=== PATIENT | male | born 1945 | race Two or more races ===

== ENCOUNTER 2018-06-02 08:50 | Inpatient (IN) | payer BC, MEDICARE ==
[~2018-06-02] VITALS: Ht 170.2 cm; Wt 77.6 kg
[2018-06-02] MEDS ORDERED: ACETAMINOPHEN 325 MG TABLET PO PRN (11:15)
[2018-06-02] MEDS ORDERED: MAG HYDROX/AL HYDROX/SIMETH 30 ML ORAL.SUSP PO PRN (11:15)
[2018-06-02] MEDS ORDERED: MAGNESIUM HYDROXIDE 2,400 MG/30 ML ORAL.SUSP. PO PRN (11:15)
[2018-06-02] MEDS ORDERED: METHYL SALICYLATE/MENTHOL TOPICAL OINTMENT 29GM TUBE. TP PRN (11:15)
[2018-06-02 11:17] VITALS: BP 166/68
[2018-06-02] MEDS ORDERED: DONE10TA7 PO (12:15)
[2018-06-02] MEDS ORDERED: ASPI-612 PO (12:15)
[2018-06-02] MEDS ORDERED: AMLO10TA8 PO (12:15)
[2018-06-02] MEDS ORDERED: IPRA0.2S5 IH (12:15)
[2018-06-02] MEDS ORDERED: CHOL10003 PO (12:15)
[2018-06-02 12:25] LABS: BASO % 1 % (0-3); EOS % 1 % (0-3); HEMOGLOBIN 13.7 g/dL (13.0-17.5); LYMPH # 0.7 x10^3/uL (1.0-4.8); LYMPH % 18 % (24-48); MEAN CORPUSCULAR HEMOGLOBIN 28 pg (25-35); MEAN CORPUSCULAR HGB CONC 33 g/dL (31-37); MEAN CORPUSCULAR VOLUME 86 fL (79-100); MONO # 0.2 x10^3/uL (0.0-1.1); MONO % 5 % (0-9); NEUT # 3.1 x10^3uL (1.8-7.7); NEUT % 75 % (31-73); PLATELET COUNT 222 x10^3/uL (140-400); RED BLOOD COUNT 4.88 x10^6/uL (4.30-5.70); RED CELL DISTRIBUTION WIDTH 15.8 % (11.5-14.5); WHITE BLOOD COUNT 4.1 x10^3/uL (4.0-11.0)
[2018-06-02] MEDS ORDERED: DEXTROSE 50% 25 GM / 50ML DISP.SYRIN. IV PRN (12:30)
[2018-06-02 12:36] LABS: ALBUMIN 3.2 g/dL (3.4-5.0); ALBUMIN/GLOBULIN RATIO 0.7 (1.0-1.7); CALCIUM 9.1 mg/dL (8.5-10.1); CREATININE 1.3 mg/dL (0.7-1.3); MAGNESIUM 1.8 mg/dL (1.8-2.4); TOTAL BILIRUBIN 0.7 mg/dL (0.2-1.0); TOTAL PROTEIN 7.5 g/dL (6.4-8.2)
[2018-06-02] MEDS ORDERED: INSU100I27 SQ (14:42)
[2018-06-02] MEDS ORDERED: MEMA10TA PO (14:42)
[2018-06-02] MEDS ORDERED: ACET500T68 PO (14:42)
[2018-06-02] MEDS ORDERED: SENN8.6T99 PO (14:42)
[2018-06-02] MEDS ORDERED: DIVA500T2 PO (14:42)
[2018-06-02] MEDS ORDERED: QUET25TA5 PO ×2 (14:42)
[2018-06-02] MEDS ORDERED: ESCITALOPRAM OX10 MG PO (14:42)
[2018-06-02] MEDS ORDERED: ACETAMINOPHEN 500 MG TABLET PO PRN (15:00)
[2018-06-02 15:16] VITALS: BP 138/71
[2018-06-02] MEDS: DIVALPROEX SODIUM 250 MG TABLET.DR. PO SCH ×2 (15:42→21:04)
[2018-06-02] MEDS: INSULIN LISPRO 300 UNITS/3 ML INSULN.PEN. SQ SCH (17:07)
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
[2018-06-02] MEDS: MEMANTINE 5 MG TABLET. PO SCH (21:04)
[2018-06-02] MEDS: SENNOSIDES 8.6 MG TABLET PO SCH (21:04)
[2018-06-02] MEDS: QUEtiapine 25 MG TABLET. PO SCH (21:04)
[2018-06-02] MEDS: INSULIN GLARGINE 300 UNITS/3 ML INSULN.PEN. SQ SCH (21:05)
--- NOTE | 2018-06-02 22:15 | PDOC ---
Exam Note: Miguel Note: Please also refer to the separate dictated note~for this date of service dictated separately. Discussed the patient with Nursing staff reviewed the chart.~Reviewed interim history and current functioning. Reviewed vital signs,~ Labs/ Radiology~and current medications noted below. Continue current treatment with the changes noted in the dictated addendum note Assessment: Vital Signs: Vital Signs Date Time Temp Pulse Resp B/P (MAP) Pulse Ox O2 Delivery O2 Flow Rate FiO2 06/02/18 15:16 96.7 76 16 138/71 (93) 100 Labs: Laboratory Tests Test 06/02/18 12:15 06/02/18 16:52 06/02/18 19:22 White Blood Count 4.1 x10^3/uL (4.0-11.0) Red Blood Count 4.88 x10^6/uL (4.30-5.70) Hemoglobin 13.7 g/dL (13.0-17.5) Hematocrit 42.0 % (39.0-53.0) Mean Corpuscular Volume 86 fL (79-100) Mean Corpuscular Hemoglobin 28 pg (25-35) Mean Corpuscular Hemoglobin Concent 33 g/dL (31-37) Red Cell Distribution Width 15.8 % (11.5-14.5) H Platelet Count 222 x10^3/uL (140-400) Neutrophils (%) (Auto) 75 % (31-73) H Lymphocytes (%) (Auto) 18 % (24-48) L Monocytes (%) (Auto) 5 % (0-9) Eosinophils (%) (Auto) 1 % (0-3) Basophils (%) (Auto) 1 % (0-3) Neutrophils # (Auto) 3.1 x10^3uL (1.8-7.7) Lymphocytes # (Auto) 0.7 x10^3/uL (1.0-4.8) L Monocytes # (Auto) 0.2 x10^3/uL (0.0-1.1) Eosinophils # (Auto) 0.0 x10^3/uL (0.0-0.7) Basophils # (Auto) 0.0 x10^3/uL (0.0-0.2) Sodium Level 146 mmol/L (136-145) H Potassium Level 4.0 mmol/L (3.5-5.1) Chloride Level 108 mmol/L (98-107) H Carbon Dioxide Level 31 mmol/L (21-32) Anion Gap 7 (6-14) Blood Urea Nitrogen 23 mg/dL (8-26) Creatinine 1.3 mg/dL (0.7-1.3) Estimated GFR (Cockcroft-Gault) 54.0 BUN/Creatinine Ratio 18 (6-20) Glucose Level 222 mg/dL (70-99) H Calcium Level 9.1 mg/dL (8.5-10.1) Magnesium Level 1.8 mg/dL (1.8-2.4) Total Bilirubin 0.7 mg/dL (0.2-1.0) Aspartate Amino Transferase (AST) 54 U/L (15-37) H Alanine Aminotransferase (ALT) 177 U/L (16-63) H Alkaline Phosphatase 188 U/L (46-116) H Total Protein 7.5 g/dL (6.4-8.2) Albumin 3.2 g/dL (3.4-5.0) L Albumin/Globulin Ratio 0.7 (1.0-1.7) L Glucose (Fingerstick) 402 mg/dL (70-99) H 257 mg/dL (70-99) H Current Medications: Meds: Current Medications Acetaminophen (Tylenol) 650 mg PRN Q6HRS PRN PO PAIN / TEMP; Start 06/02/18 at 11:15; Status Cancel Multi-Ingredient Ointment (Analgesic [place]) 1 rai PRN QID PRN TP MUSCLE PAIN; Start 06/02/18 at 11:15 Al Hydroxide/Mg Hydroxide (Mylanta Plus Xs) 15 ml PRN AFTMEALHC PRN PO DYSPEPSIA; Start 06/02/18 at 11:15 Magnesium Hydroxide (Milk Of Magnesia) 2,400 mg PRN QHS PRN PO CONSTIPATION; Start 06/02/18 at 11:15 Olanzapine (ZyPREXA ZYDIS) 2.5 mg PRN Q2HR PRN PO PSYCHOSIS/agitation; Start at 12:15 Insulin Human Lispro (HumaLOG) 0-8 UNITS TIDWMEALS SQ Last administered on 06/02at 17:07; Start 06/02/18 at 17:00 Dextrose 12.5 gm PRN Q15MIN PRN IV SEE COMMENTS; Start 06/02/18 at 12:30 Insulin Glargine (Lantus) 8 units DAILY SQ ; Start 06/03/18 at 09:00 Vitamin D (Vitamin D3) 1,000 unit DAILY PO ; Start 06/03/18 at 09:00 Ipratropium [place] (Atrovent) 0.06 mg DAILY IH ; Start 06/03/18 at 09:00; Status UNV Acetaminophen (Tylenol) 500 mg PRN TID PRN PO PAIN; Start 06/02/18 at 15:00 Amlodipine Besylate (Norvasc) 10 mg DAILY PO ; Start 06/03/18 at 09:00 Aspirin (Aspirin Enteric Coated) 81 mg DAILY PO ; Start 06/03/18 at 09:00 Divalproex Sodium (Depakote) 250 mg TID PO Last administered on 06/02/18at 21:04 ; Start 06/02/18 at 15:00 Citalopram Hydrobromide (CeleXA) 20 mg DAILY PO ; Start 06/03/18 at 09:00 Insulin Glargine (Lantus) 5 units QHS SQ Last administered on 06/02/18at 21:05; Start 06/02/18 at 21:00 Memantine (Namenda) 5 mg BID PO Last administered on 06/02/18at 21:04; Start at 21:00 Quetiapine Fumarate (SEROquel) 12.5 mg BID92 PO ; Start 06/03/18 at 09:00 Quetiapine Fumarate (SEROquel) 25 mg QHS PO Last administered on 06/02/18at 21: 04; Start 06/02/18 at 21:00 Sennosides (Senna) 8.6 mg BID PO Last administered on 06/02/18at 21:04; Start at 21:00 Ipratropium [place] (Atrovent Nasal) 2 spray DAILY NS ; Start 06/03/18 at 09:00 Donepezil HCl (Aricept) 10 mg DAILY PO ; Start 06/03/18 at 09:00 Active Scripts Active Reported Levemir Flextouch (Insulin Detemir) 100 Unit/1 Ml Insuln.pen 5 Unit SQ QHS Acetaminophen 500 Mg Tablet 500 Mg PO TID PRN PRN Seroquel (Quetiapine Fumarate) 25 Mg Tablet 12.5 Mg PO BID92 Seroquel (Quetiapine Fumarate) 25 Mg Tablet 25 Mg PO QHS Namenda (Memantine Hcl) 10 Mg Tablet 5 Mg PO BID Senokot (Sennosides) 8.6 Mg Tablet 8.6 Mg PO BID Depakote (Divalproex Sodium) 500 Mg Tablet.dr 250 Mg PO TID Escitalopram Oxalate 10 Mg Tablet 10 Mg PO DAILY Donepezil Hcl 10 Mg Tablet 10 Mg PO DAILY Aspirin Ec (Aspirin) 81 Mg Tablet.dr 81 Mg PO DAILY Vitamin D3 (Cholecalciferol (Vitamin D3)) 1,000 Unit Tablet 1,000 Unit PO DAILY Amlodipine Besylate 10 Mg Tablet 10 Mg PO DAILY Ipratropium [place] 0.2 Mg/1 Ml Solution 0.06 % IH DAILY I have reviewed the current psychotropics carefully including drug interactions. Risk benefit ratio favors no change other than as noted in my dictated progress note. Diagnosis: Problems: (1) Anxiety disorder (2) Dementia, vascular, with delusions (3) Dementia, vascular, with depression (4) Dementia in Alzheimer's disease with delusions (5) Dementia in Alzheimer's disease with depression (6) Impulse control disorder KEZIA OWUSU MD Jun 02, 2018 22:15
[2018-06-03 06:04] VITALS: BP 156/73
[2018-06-03 06:18] LABS: BACTERIA,URINE 0 /HPF (0-FEW); BILIRUBIN,URINE NEG (NEG); CLARITY,URINE CLEAR; COLOR,URINE YELLOW; GLUCOSE,URINE NEG (NEG); NITRITE,URINE NEG (NEG); SQUAMOUS EPITHELIAL CELL,UR FEW /LPF; UROBILINOGEN,URINE 0.2 mg/dL (0.2 mg/dL); WBC,URINE OCC /HPF (0-4)
[2018-06-03 06:19] LABS: HYALINE CASTS, URINE FEW /HPF
[2018-06-03] MEDS: INSULIN LISPRO 300 UNITS/3 ML INSULN.PEN. SQ SCH ×3 (08:00→17:16)
[2018-06-03] MEDS: IPRATROPIUM BROMIDE 0.06% NASAL SPRAY 15ML BOTTLE NS SCH (08:35)
[2018-06-03] MEDS: DIVALPROEX SODIUM 250 MG TABLET.DR. PO SCH ×3 (08:43→19:23)
[2018-06-03] MEDS: MEMANTINE 5 MG TABLET. PO SCH ×2 (08:43→19:23)
[2018-06-03] MEDS: SENNOSIDES 8.6 MG TABLET PO SCH ×2 (08:43→19:23)
[2018-06-03] MEDS: amLODIPine BESYLATE 10 MG TABLET PO SCH (08:49)
[2018-06-03] MEDS: CITALOPRAM 20 MG TABLET. PO SCH (08:49)
[2018-06-03] MEDS: QUEtiapine 25 MG TABLET. PO SCH ×3 (08:50→19:23)
[2018-06-03] MEDS: ASPIRIN ENTERIC COATED 81 MG TABLET.DR. PO SCH (08:51)
[2018-06-03] MEDS: DONEPEZIL HCL 10 MG TABLET PO SCH (08:51)
[2018-06-03] MEDS: CHOLECALCIFEROL (VITAMIN D3) 1,000 UNIT TABLET PO SCH (08:51)
[2018-06-03] MEDS ORDERED: IPRATROPIUM BROMIDE 0.5 MG/2.5 ML NEBU. IH SCH (09:00)
[2018-06-03] MEDS ORDERED: INSULIN GLARGINE 300 UNITS/3 ML INSULN.PEN. SQ SCH (09:00)
[2018-06-03 16:00] VITALS: BP 109/70
[2018-06-03 18:44] LABS: THYROID STIM HORMONE (TSH) 5.582 uIU/mL (0.358-3.740)
[2018-06-03] MEDS: INSULIN GLARGINE 300 UNITS/3 ML INSULN.PEN. SQ SCH (20:45)
[2018-06-03 21:17] LABS: VAL ACID 30 mcg/mL (50-100)
--- NOTE | 2018-06-03 22:09 | PDOC ---
Exam Note: Miguel Note: Please also refer to the separate dictated note~for this date of service dictated separately.~Patient seen individually. Discussed the patient with Nursing staff reviewed the chart.~Reviewed interim history and current functioning. Reviewed vital signs,~Labs/ Radiology~and current medications noted below. Continue current treatment with the changes noted in the dictated addendum note Assessment: Vital Signs: Vital Signs Date Time Temp Pulse Resp B/P (MAP) Pulse Ox O2 Delivery O2 Flow Rate FiO2 06/03/18 16:00 97.9 60 18 109/70 (83) 100 I&O Intake and Output 06/03/18 07:00 Intake Total 604 ml Balance 604 ml Intake Oral 604 ml # Bowel Movements 1 Labs: Laboratory Tests Test 06/03/18 05:40 06/03/18 07:11 06/03/18 12:01 06/03/18 16:19 Urine Collection Type Unknown Urine Color Yellow Urine Clarity Clear Urine pH 6.0 Urine Specific [place] 1.020 Urine Protein 30 mg/dl (NEG-TRACE) Urine Glucose (UA) Neg mg/dL (NEG) Urine Ketones (Stick) Trace mg/dL (NEG) Urine Blood Small (NEG) Urine Nitrite Neg (NEG) Urine Bilirubin Neg (NEG) Urine Urobilinogen Dipstick 0.2 mg/dL (0.2 mg/dL) Urine Leukocyte Esterase Neg (NEG) Urine RBC 11-20 /HPF (0-2) Urine WBC Occ /HPF (0-4) Urine Squamous Epithelial Cells Few /LPF Urine Bacteria 0 /HPF (0-FEW) Urine Hyaline Casts Few /HPF Glucose (Fingerstick) 71 mg/dL (70-99) 247 mg/dL (70-99) H 230 mg/dL (70-99) H Test 06/03/18 19:22 06/03/18 20:35 Glucose (Fingerstick) 188 mg/dL (70-99) H Valproic Acid Level 30 mcg/mL (50-100) L Valproic Acid Last Dose Date Unk Valproic Acid Last Dose Time Unk Current Medications: Meds: Current Medications Acetaminophen (Tylenol) 650 mg PRN Q6HRS PRN PO PAIN / TEMP; Start 06/02/18 at 11:15; Status Cancel Multi-Ingredient Ointment (Analgesic [place]) 1 rai PRN QID PRN TP MUSCLE PAIN; Start 06/02/18 at 11:15 Al Hydroxide/Mg Hydroxide (Mylanta Plus Xs) 15 ml PRN AFTMEALHC PRN PO DYSPEPSIA; Start 06/02/18 at 11:15 Magnesium Hydroxide (Milk Of Magnesia) 2,400 mg PRN QHS PRN PO CONSTIPATION; Start 06/02/18 at 11:15 Olanzapine (ZyPREXA ZYDIS) 2.5 mg PRN Q2HR PRN PO PSYCHOSIS/agitation Last administered on 06/03/18at 13:00; Start 06/02/18 at 12:15 Insulin Human Lispro (HumaLOG) 0-8 UNITS TIDWMEALS SQ Last administered on 06/03 17:16; Start 06/02/18 at 17:00 Dextrose 12.5 gm PRN Q15MIN PRN IV SEE COMMENTS; Start 06/02/18 at 12:30 Insulin Glargine (Lantus) 8 units DAILY SQ Last administered on 06/03/18 08:59 ; Start 06/03/18 at 09:00 Vitamin D (Vitamin D3) 1,000 unit DAILY PO Last administered on 06/03/18at 08:51 ; Start 06/03/18 at 09:00 Ipratropium [place] (Atrovent) 0.06 mg DAILY IH ; Start 06/03/18 at 09:00; Status UNV Acetaminophen (Tylenol) 500 mg PRN TID PRN PO PAIN; Start 06/02/18 at 15:00 Amlodipine Besylate (Norvasc) 10 mg DAILY PO Last administered on 06/03/18 08: 49; Start 06/03/18 at 09:00 Aspirin (Aspirin Enteric Coated) 81 mg DAILY PO Last administered on 06/03/18at 08:51; Start 06/03/18 at 09:00 Divalproex Sodium (Depakote) 250 mg TID PO Last administered on 06/03/18 19:23 ; Start 06/02/18 at 15:00 Citalopram Hydrobromide (CeleXA) 20 mg DAILY PO Last administered on 06/03/18 08:49; Start 06/03/18 at 09:00 Insulin Glargine (Lantus) 5 units QHS SQ Last administered on 06/03/18at 20:45; Start 06/02/18 at 21:00 Memantine (Namenda) 5 mg BID PO Last administered on 06/03/18at 19:23; Start at 21:00 Quetiapine Fumarate (SEROquel) 12.5 mg BID92 PO Last administered on 06/03/18at 13:00; Start 06/03/18 at 09:00 Quetiapine Fumarate (SEROquel) 25 mg QHS PO Last administered on 06/03/18at 19: 23; Start 06/02/18 at 21:00 Sennosides (Senna) 8.6 mg BID PO Last administered on 06/03/18at 19:23; Start at 21:00 Ipratropium [place] (Atrovent Nasal) 2 spray DAILY NS Last administered on 06/03at 08:35; Start 06/03/18 at 09:00 Donepezil HCl (Aricept) 10 mg DAILY PO Last administered on 06/03/18at 08:51; Start 06/03/18 at 09:00 Active Scripts Active Reported Levemir Flextouch (Insulin Detemir) 100 Unit/1 Ml Insuln.pen 5 Unit SQ QHS Acetaminophen 500 Mg Tablet 500 Mg PO TID PRN PRN Seroquel (Quetiapine Fumarate) 25 Mg Tablet 12.5 Mg PO BID92 Seroquel (Quetiapine Fumarate) 25 Mg Tablet 25 Mg PO QHS Namenda (Memantine Hcl) 10 Mg Tablet 5 Mg PO BID Senokot (Sennosides) 8.6 Mg Tablet 8.6 Mg PO BID Depakote (Divalproex Sodium) 500 Mg Tablet.dr 250 Mg PO TID Escitalopram Oxalate 10 Mg Tablet 10 Mg PO DAILY Donepezil Hcl 10 Mg Tablet 10 Mg PO DAILY Aspirin Ec (Aspirin) 81 Mg Tablet.dr 81 Mg PO DAILY Vitamin D3 (Cholecalciferol (Vitamin D3)) 1,000 Unit Tablet 1,000 Unit PO DAILY Amlodipine Besylate 10 Mg Tablet 10 Mg PO DAILY Ipratropium [place] 0.2 Mg/1 Ml Solution 0.06 % IH DAILY I have reviewed the current psychotropics carefully including drug interactions. Risk benefit ratio favors no change other than as noted in my dictated progress note. Diagnosis: Problems: (1) Anxiety disorder (2) Dementia, vascular, with delusions (3) Dementia, vascular, with depression (4) Dementia in Alzheimer's disease with delusions (5) Dementia in Alzheimer's disease with depression (6) Impulse control disorder KEZIA OWUSU MD Jun 03, 2018 22:09
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
[2018-06-04] MEDS ORDERED: DEXTROSE ORAL GEL 15 GM TUBE. ONE (06:05)
[2018-06-04 06:15] VITALS: BP 118/85
[2018-06-04] MEDS ORDERED: GLUCAGON,HUMAN RECOMBINANT 1 MG KIT. IM ONE (06:30)
[2018-06-04] MEDS ORDERED: DEXTROSE 50% 25 GM / 50ML DISP.SYRIN. IV PRN (07:00)
[2018-06-04] MEDS: QUEtiapine 25 MG TABLET. PO SCH ×4 (07:45→19:30)
[2018-06-04] MEDS: SENNOSIDES 8.6 MG TABLET PO SCH ×2 (07:45→19:27)
[2018-06-04] MEDS: CHOLECALCIFEROL (VITAMIN D3) 1,000 UNIT TABLET PO SCH (07:45)
[2018-06-04] MEDS: amLODIPine BESYLATE 10 MG TABLET PO SCH (07:46)
[2018-06-04] MEDS: IPRATROPIUM BROMIDE 0.06% NASAL SPRAY 15ML BOTTLE NS SCH (07:46)
[2018-06-04] MEDS: DIVALPROEX SODIUM 250 MG TABLET.DR. PO SCH ×2 (07:46→13:17)
[2018-06-04] MEDS: MEMANTINE 5 MG TABLET. PO SCH ×2 (07:46→19:27)
[2018-06-04] MEDS: CITALOPRAM 20 MG TABLET. PO SCH (07:46)
[2018-06-04] MEDS: DONEPEZIL HCL 10 MG TABLET PO SCH (07:46)
[2018-06-04] MEDS: ASPIRIN ENTERIC COATED 81 MG TABLET.DR. PO SCH (07:46)
[2018-06-04] MEDS: INSULIN LISPRO 300 UNITS/3 ML INSULN.PEN. SQ SCH ×3 (07:47→17:53)
[2018-06-04] MEDS ORDERED: DIVALPROEX 125 MG CAP.SPRINK PO SCH (14:00)
[2018-06-04 15:54] VITALS: BP 133/83
[2018-06-04] MEDS: DIVALPROEX 125 MG CAP.SPRINK PO SCH (19:34)
--- NOTE | 2018-06-04 20:19 | PN ---
DATE: 06/03/2018 PSYCHIATRIC PROGRESS NOTE This late entry 06/03/2018 covers elements not covered in my initial note. SUBJECTIVE: I met with the patient in the evening. The patient slept 5-3/4 hours previous night. He was quite anxious, restless and after lunch wanting to get out, but wanted his $16 that was owed to him. He received Zyprexa p.r.n. We will check valproic acid level. He has been anxious, restless, extremely confused. REVIEW OF SYSTEMS: Ambulation impaired, in wheelchair. No CV, , pulmonary, eye, ENT system symptoms on review. Reliability poor. MENTAL STATUS EXAM: Oriented to himself. Insight, judgment, recent and remote memory, attention, concentration, fund of knowledge poor, consistent with his diagnosis mentioned in my initial note. PLAN: No change from initial note and adjust Depakote post level received, may add BuSpar for anxiety, but only after we get the valproic acid level therapeutic. MAN Marily OWUSU MD DR: JM/re JOB#: [id number] / [id number]
--- NOTE | 2018-06-04 22:35 | PDOC ---
Exam Note: Miguel Note: Please also refer to the separate dictated note~for this date of service dictated separately.~Patient seen individually. Discussed the patient with Nursing staff reviewed the chart.~Reviewed interim history and current functioning. Reviewed vital signs,~Labs/ Radiology~and current medications noted below. Continue current treatment with the changes noted in the dictated addendum note Assessment: Vital Signs: Vital Signs Date Time Temp Pulse Resp B/P (MAP) Pulse Ox O2 Delivery O2 Flow Rate FiO2 06/04/18 15:54 97.2 60 18 133/83 (100) 92 06/04/18 06:15 Room Air I&O Intake and Output 06/04/18 06:59 Intake Total 840 ml Balance 840 ml Intake Oral 840 ml # Voids 1 # Bowel Movements 1 Labs: Laboratory Tests Test 06/04/18 06:04 06/04/18 06:18 06/04/18 06:20 06/04/18 06:35 Glucose (Fingerstick) 24 mg/dL (70-99) *L 30 mg/dL (70-99) *L 188 mg/dL (70-99) H Glucose Level 32 mg/dL (70-99) *L Test 06/04/18 07:26 06/04/18 11:53 06/04/18 17:12 06/04/18 19:09 Glucose (Fingerstick) 190 mg/dL (70-99) H 329 mg/dL (70-99) H 254 mg/dL (70-99) H 207 mg/dL (70-99) H Current Medications: Meds: Current Medications Acetaminophen (Tylenol) 650 mg PRN Q6HRS PRN PO PAIN / TEMP; Start 06/02/18 at 11:15; Status Cancel Multi-Ingredient Ointment (Analgesic [place]) 1 rai PRN QID PRN TP MUSCLE PAIN; Start 06/02/18 at 11:15 Al Hydroxide/Mg Hydroxide (Mylanta Plus Xs) 15 ml PRN AFTMEALHC PRN PO DYSPEPSIA; Start 06/02/18 at 11:15 Magnesium Hydroxide (Milk Of Magnesia) 2,400 mg PRN QHS PRN PO CONSTIPATION; Start 06/02/18 at 11:15 Olanzapine (ZyPREXA ZYDIS) 2.5 mg PRN Q2HR PRN PO PSYCHOSIS/agitation Last administered on 06/03/18 13:00; Start 06/02/18 at 12:15 Insulin Human Lispro (HumaLOG) 0-8 UNITS TIDWMEALS SQ Last administered on 06/03 17:16; Start 06/02/18 at 17:00; Stop 06/04/18 at 06:57; Status DC Dextrose 12.5 gm PRN Q15MIN PRN IV SEE COMMENTS Last administered on 06/04/18 06:56; Start 06/02/18 at 12:30; Stop 06/04/18 at 11:30; Status DC Insulin Glargine (Lantus) 8 units DAILY SQ Last administered on 06/03/18 08:59 ; Start 06/03/18 at 09:00; Stop 06/04/18 at 06:50; Status DC Vitamin D (Vitamin D3) 1,000 unit DAILY PO Last administered on 06/04/18at 07:45 ; Start 06/03/18 at 09:00 Ipratropium [place] (Atrovent) 0.06 mg DAILY IH ; Start 06/03/18 at 09:00; Status UNV Acetaminophen (Tylenol) 500 mg PRN TID PRN PO PAIN; Start 06/02/18 at 15:00 Amlodipine Besylate (Norvasc) 10 mg DAILY PO Last administered on 06/04/18 07: 46; Start 06/03/18 at 09:00 Aspirin (Aspirin Enteric Coated) 81 mg DAILY PO Last administered on 06/04/18at 07:46; Start 06/03/18 at 09:00 Divalproex Sodium (Depakote) 250 mg TID PO Last administered on 06/04/18 13:17 ; Start 06/02/18 at 15:00; Stop 06/04/18 at 12:54; Status DC Citalopram Hydrobromide (CeleXA) 20 mg DAILY PO Last administered on 06/04/18 07:46; Start 06/03/18 at 09:00 Insulin Glargine (Lantus) 5 units QHS SQ Last administered on 06/03/18 20:45; Start 06/02/18 at 21:00; Stop 06/04/18 at 06:50; Status DC Memantine (Namenda) 5 mg BID PO Last administered on 06/04/18 19:27; Start at 21:00 Quetiapine Fumarate (SEROquel) 12.5 mg BID92 PO Last administered on 06/04/18 13:18; Start 06/03/18 at 09:00; Stop 06/04/18 at 16:52; Status DC Quetiapine Fumarate (SEROquel) 25 mg QHS PO Last administered on 06/04/18 19: 27; Start 06/02/18 at 21:00 Sennosides (Senna) 8.6 mg BID PO Last administered on 06/04/18 19:27; Start at 21:00 Ipratropium [place] (Atrovent Nasal) 2 spray DAILY NS Last administered on 06/04 07:46; Start 06/03/18 at 09:00 Donepezil HCl (Aricept) 10 mg DAILY PO Last administered on 06/04/18 07:46; Start 06/03/18 at 09:00 Glucose (Insta-Glucose) 15 gm STK-MED ONCE .ROUTE Last administered on at 06:05; Start 06/04/18 at 06:05; Stop 06/04/18 at 06:06; Status DC Glucagon (Glucagen Kit) 1 mg 1X ONCE IM ; Start 06/04/18 at 06:30; Stop at 06:32; Status DC Insulin Human Lispro (HumaLOG) 0-5 UNITS TIDWMEALS SQ Last administered on 06/04at 17:53; Start 06/04/18 at 08:00 Dextrose 12.5 gm PRN Q15MIN PRN IV SEE COMMENTS; Start 06/04/18 at 07:00 Divalproex Sodium (Depakote Sprinkles) 250 mg TID PO ; Start 06/04/18 at 14:00; Stop 06/04/18 at 16:52; Status DC Divalproex Sodium (Depakote Sprinkles) 375 mg TID PO Last administered on at 19:34; Start 06/04/18 at 21:00 Quetiapine Fumarate (SEROquel) 12.5 mg TIDWMEALS PO ; Start 06/04/18 at 21:00 Active Scripts Active Reported Levemir Flextouch (Insulin Detemir) 100 Unit/1 Ml Insuln.pen 5 Unit SQ QHS Acetaminophen 500 Mg Tablet 500 Mg PO TID PRN PRN Seroquel (Quetiapine Fumarate) 25 Mg Tablet 12.5 Mg PO BID92 Seroquel (Quetiapine Fumarate) 25 Mg Tablet 25 Mg PO QHS Namenda (Memantine Hcl) 10 Mg Tablet 5 Mg PO BID Senokot (Sennosides) 8.6 Mg Tablet 8.6 Mg PO BID Depakote (Divalproex Sodium) 500 Mg Tablet.dr 250 Mg PO TID Escitalopram Oxalate 10 Mg Tablet 10 Mg PO DAILY Donepezil Hcl 10 Mg Tablet 10 Mg PO DAILY Aspirin Ec (Aspirin) 81 Mg Tablet.dr 81 Mg PO DAILY Vitamin D3 (Cholecalciferol (Vitamin D3)) 1,000 Unit Tablet 1,000 Unit PO DAILY Amlodipine Besylate 10 Mg Tablet 10 Mg PO DAILY Ipratropium [place] 0.2 Mg/1 Ml Solution 0.06 % IH DAILY I have reviewed the current psychotropics carefully including drug interactions. Risk benefit ratio favors no change other than as noted in my dictated progress note. Diagnosis: Problems: (1) Anxiety disorder (2) Dementia, vascular, with delusions (3) Dementia, vascular, with depression (4) Dementia in Alzheimer's disease with delusions (5) Dementia in Alzheimer's disease with depression (6) Impulse control disorder KEZIA OWUSU MD Jun 04, 2018 22:35
[2018-06-05 06:54] VITALS: BP 135/65
[2018-06-05] MEDS: CITALOPRAM 20 MG TABLET. PO SCH (07:46)
[2018-06-05] MEDS: INSULIN LISPRO 300 UNITS/3 ML INSULN.PEN. SQ SCH ×3 (07:46→17:00)
[2018-06-05] MEDS: QUEtiapine 25 MG TABLET. PO SCH ×4 (07:46→20:54)
[2018-06-05] MEDS: SENNOSIDES 8.6 MG TABLET PO SCH ×2 (07:46→20:54)
[2018-06-05] MEDS: CHOLECALCIFEROL (VITAMIN D3) 1,000 UNIT TABLET PO SCH (07:46)
[2018-06-05] MEDS: DIVALPROEX 125 MG CAP.SPRINK PO SCH ×3 (07:47→20:54)
[2018-06-05] MEDS: IPRATROPIUM BROMIDE 0.06% NASAL SPRAY 15ML BOTTLE NS SCH (07:47)
[2018-06-05] MEDS: MEMANTINE 5 MG TABLET. PO SCH ×2 (07:47→20:54)
[2018-06-05] MEDS: amLODIPine BESYLATE 10 MG TABLET PO SCH (07:47)
[2018-06-05] MEDS: DONEPEZIL HCL 10 MG TABLET PO SCH (07:47)
[2018-06-05] MEDS: ASPIRIN ENTERIC COATED 81 MG TABLET.DR. PO SCH (07:47)
--- NOTE | 2018-06-05 21:30 | PDOC ---
Exam Note: Miguel Note: Please also refer to the separate dictated note~for this date of service dictated separately.~Patient seen individually. Discussed the patient with Nursing staff reviewed the chart.~Reviewed interim history and current functioning. Reviewed vital signs,~Labs/ Radiology~and current medications noted below. Continue current treatment with the changes noted in the dictated addendum note Assessment: Vital Signs: Vital Signs Date Time Temp Pulse Resp B/P (MAP) Pulse Ox O2 Delivery O2 Flow Rate FiO2 06/05/18 07:47 54 135/65 06/05/18 06:54 97.4 16 100 06/04/18 06:15 Room Air I&O Intake and Output 06/05/18 06:59 Intake Total 900 ml Balance 900 ml Intake Oral 900 ml # Voids 1 Labs: Laboratory Tests Test 06/05/18 07:12 06/05/18 12:24 06/05/18 16:36 06/05/18 19:18 Glucose (Fingerstick) 151 mg/dL (70-99) H 234 mg/dL (70-99) H 260 mg/dL (70-99) H 282 mg/dL (70-99) H Current Medications: Meds: Current Medications Acetaminophen (Tylenol) 650 mg PRN Q6HRS PRN PO PAIN / TEMP; Start 06/02/18 at 11:15; Status Cancel Multi-Ingredient Ointment (Analgesic [place]) 1 rai PRN QID PRN TP MUSCLE PAIN; Start 06/02/18 at 11:15 Al Hydroxide/Mg Hydroxide (Mylanta Plus Xs) 15 ml PRN AFTMEALHC PRN PO DYSPEPSIA; Start 06/02/18 at 11:15 Magnesium Hydroxide (Milk Of Magnesia) 2,400 mg PRN QHS PRN PO CONSTIPATION; Start 06/02/18 at 11:15 Olanzapine (ZyPREXA ZYDIS) 2.5 mg PRN Q2HR PRN PO PSYCHOSIS/agitation Last administered on 06/03/18at 13:00; Start 06/02/18 at 12:15 Insulin Human Lispro (HumaLOG) 0-8 UNITS TIDWMEALS SQ Last administered on 06/03at 17:16; Start 06/02/18 at 17:00; Stop 06/04/18 at 06:57; Status DC Dextrose 12.5 gm PRN Q15MIN PRN IV SEE COMMENTS Last administered on 06/04/18 06:56; Start 06/02/18 at 12:30; Stop 06/04/18 at 11:30; Status DC Insulin Glargine (Lantus) 8 units DAILY SQ Last administered on 06/03/18at 08:59 ; Start 06/03/18 at 09:00; Stop 06/04/18 at 06:50; Status DC Vitamin D (Vitamin D3) 1,000 unit DAILY PO Last administered on 06/05/18 07:46 ; Start 06/03/18 at 09:00 Ipratropium [place] (Atrovent) 0.06 mg DAILY IH ; Start 06/03/18 at 09:00; Status UNV Acetaminophen (Tylenol) 500 mg PRN TID PRN PO PAIN; Start 06/02/18 at 15:00 Amlodipine Besylate (Norvasc) 10 mg DAILY PO Last administered on 06/05/18 07: 47; Start 06/03/18 at 09:00 Aspirin (Aspirin Enteric Coated) 81 mg DAILY PO Last administered on 06/05/18at 07:47; Start 06/03/18 at 09:00 Divalproex Sodium (Depakote) 250 mg TID PO Last administered on 06/04/18 13:17 ; Start 06/02/18 at 15:00; Stop 06/04/18 at 12:54; Status DC Citalopram Hydrobromide (CeleXA) 20 mg DAILY PO Last administered on 06/05/18at 07:46; Start 06/03/18 at 09:00 Insulin Glargine (Lantus) 5 units QHS SQ Last administered on 06/03/18at 20:45; Start 06/02/18 at 21:00; Stop 06/04/18 at 06:50; Status DC Memantine (Namenda) 5 mg BID PO Last administered on 06/05/18 20:54; Start at 21:00 Quetiapine Fumarate (SEROquel) 12.5 mg BID92 PO Last administered on 06/04/18 13:18; Start 06/03/18 at 09:00; Stop 06/04/18 at 16:52; Status DC Quetiapine Fumarate (SEROquel) 25 mg QHS PO Last administered on 06/05/18 20: 54; Start 06/02/18 at 21:00 Sennosides (Senna) 8.6 mg BID PO Last administered on 06/05/18 20:54; Start at 21:00 Ipratropium [place] (Atrovent Nasal) 2 spray DAILY NS Last administered on 06/05 07:47; Start 06/03/18 at 09:00 Donepezil HCl (Aricept) 10 mg DAILY PO Last administered on 06/05/18 07:47; Start 06/03/18 at 09:00 Glucose (Insta-Glucose) 15 gm STK-MED ONCE .ROUTE Last administered on 06:05; Start 06/04/18 at 06:05; Stop 06/04/18 at 06:06; Status DC Glucagon (Glucagen Kit) 1 mg 1X ONCE IM ; Start 06/04/18 at 06:30; Stop at 06:32; Status DC Insulin Human Lispro (HumaLOG) 0-5 UNITS TIDWMEALS SQ Last administered on 06/05at 17:00; Start 06/04/18 at 08:00 Dextrose 12.5 gm PRN Q15MIN PRN IV SEE COMMENTS; Start 06/04/18 at 07:00 Divalproex Sodium (Depakote Sprinkles) 250 mg TID PO ; Start 06/04/18 at 14:00; Stop 06/04/18 at 16:52; Status DC Divalproex Sodium (Depakote Sprinkles) 375 mg TID PO Last administered on at 20:54; Start 06/04/18 at 21:00 Quetiapine Fumarate (SEROquel) 12.5 mg TIDWMEALS PO Last administered on 17:00; Start 06/04/18 at 21:00 Active Scripts Active Reported Levemir Flextouch (Insulin Detemir) 100 Unit/1 Ml Insuln.pen 5 Unit SQ QHS Acetaminophen 500 Mg Tablet 500 Mg PO TID PRN PRN Seroquel (Quetiapine Fumarate) 25 Mg Tablet 12.5 Mg PO BID92 Seroquel (Quetiapine Fumarate) 25 Mg Tablet 25 Mg PO QHS Namenda (Memantine Hcl) 10 Mg Tablet 5 Mg PO BID Senokot (Sennosides) 8.6 Mg Tablet 8.6 Mg PO BID Depakote (Divalproex Sodium) 500 Mg Tablet.dr 250 Mg PO TID Escitalopram Oxalate 10 Mg Tablet 10 Mg PO DAILY Donepezil Hcl 10 Mg Tablet 10 Mg PO DAILY Aspirin Ec (Aspirin) 81 Mg Tablet.dr 81 Mg PO DAILY Vitamin D3 (Cholecalciferol (Vitamin D3)) 1,000 Unit Tablet 1,000 Unit PO DAILY Amlodipine Besylate 10 Mg Tablet 10 Mg PO DAILY Ipratropium [place] 0.2 Mg/1 Ml Solution 0.06 % IH DAILY I have reviewed the current psychotropics carefully including drug interactions. Risk benefit ratio favors no change other than as noted in my dictated progress note. Diagnosis: Problems: (1) Anxiety disorder (2) Dementia, vascular, with delusions (3) Dementia, vascular, with depression (4) Dementia in Alzheimer's disease with delusions (5) Dementia in Alzheimer's disease with depression (6) Impulse control disorder KEZIA OWUSU MD Jun 05, 2018 21:30
[2018-06-06 06:05] VITALS: BP 96/55
[2018-06-06] MEDS: CITALOPRAM 20 MG TABLET. PO SCH (07:34)
[2018-06-06] MEDS: ASPIRIN ENTERIC COATED 81 MG TABLET.DR. PO SCH (07:34)
[2018-06-06] MEDS: SENNOSIDES 8.6 MG TABLET PO SCH (07:34)
[2018-06-06] MEDS: QUEtiapine 25 MG TABLET. PO SCH ×2 (07:34→12:56)
[2018-06-06] MEDS: DONEPEZIL HCL 10 MG TABLET PO SCH (07:34)
[2018-06-06] MEDS: DIVALPROEX 125 MG CAP.SPRINK PO SCH ×2 (07:35→12:56)
[2018-06-06] MEDS: CHOLECALCIFEROL (VITAMIN D3) 1,000 UNIT TABLET PO SCH (07:35)
[2018-06-06] MEDS: MEMANTINE 5 MG TABLET. PO SCH (07:35)
[2018-06-06] MEDS: amLODIPine BESYLATE 10 MG TABLET PO SCH (07:36)
[2018-06-06] MEDS: INSULIN LISPRO 300 UNITS/3 ML INSULN.PEN. SQ SCH ×2 (07:38→12:00)
[2018-06-06] MEDS: IPRATROPIUM BROMIDE 0.06% NASAL SPRAY 15ML BOTTLE NS SCH (07:39)
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
[2018-06-06 16:29] VITALS: BP 112/62
[2018-06-06] MEDS ORDERED: CITA20TA9 PO (16:48)
[2018-06-06] MEDS ORDERED: MAG355OR12 PO (16:50)
[2018-06-06] MEDS ORDERED: INSU200I SQ (16:50)
[2018-06-06] MEDS ORDERED: MAGN2400 PO (16:51)
[2018-06-06] MEDS ORDERED: MENT113G6 TP (16:52)
[2018-06-06] MEDS ORDERED: DEXT50VI2 IV (16:52)
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
--- NOTE | 2018-06-07 18:53 | PN ---
DATE: 06/05/2018 PSYCHIATRIC PROGRESS NOTE This late entry 06/05/2018 covers elements, not covered in my initial note. SUBJECTIVE: I met with the patient in the evening. The patient slept 6-3/4 hours previous night. He has been quite confused, cranky, irritable, labile. Seroquel has been adjusted. REVIEW OF SYSTEMS: Ambulation impaired with wheelchair. No CV, , pulmonary, eye, ENT system symptoms on review. Reliability poor. MENTAL STATUS EXAM: Oriented to himself. Insight, judgment, recent and remote memory, attention, concentration, fund of knowledge poor, consistent with his diagnosis mentioned in my initial note. PLAN: No change from initial note. MAN Marily OWUSU MD DR: JM/re JOB#: [id number] / [id number]
--- NOTE | 2018-06-07 22:01 | PDOC ---
Exam Note: Miguel Note: Late entry for Date of Discharge 06.06.2018. Please also refer to the separate dictated note~for this date of service dictated separately.~Patient seen individually. Discussed the patient with Nursing staff reviewed the chart.~ Reviewed interim history and current functioning. Reviewed vital signs,~Labs/ Radiology~and current medications noted below. Continue current treatment with the changes noted in the dictated addendum note Assessment: Vital Signs: Vital Signs Date Time Temp Pulse Resp B/P (MAP) Pulse Ox O2 Delivery O2 Flow Rate FiO2 06/06/18 16:29 87.0 54 16 112/62 (79) 06/06/18 06:05 100 06/04/18 06:15 Room Air I&O Intake and Output 06/07/18 07:00 Intake Total 320 ml Balance 320 ml Intake Oral 320 ml Current Medications: Meds: Current Medications Acetaminophen (Tylenol) 650 mg PRN Q6HRS PRN PO PAIN / TEMP; Start 06/02/18 at 11:15; Status Cancel Multi-Ingredient Ointment (Analgesic [place]) 1 manuela PRN QID PRN TP MUSCLE PAIN; Start 06/02/18 at 11:15; Stop 06/06/18 at 17:19; Status DC Al Hydroxide/Mg Hydroxide (Mylanta Plus Xs) 15 ml PRN AFTMEALHC PRN PO DYSPEPSIA; Start 06/02/18 at 11:15; Stop 06/06/18 at 17:19; Status DC Magnesium Hydroxide (Milk Of Magnesia) 2,400 mg PRN QHS PRN PO CONSTIPATION; Start 06/02/18 at 11:15; Stop 06/06/18 at 17:19; Status DC Olanzapine (ZyPREXA ZYDIS) 2.5 mg PRN Q2HR PRN PO PSYCHOSIS/agitation Last administered on 06/05/18at 12:30; Start 06/02/18 at 12:15; Stop 06/06/18 at 17:19 ; Status DC Insulin Human Lispro (HumaLOG) 0-8 UNITS TIDWMEALS SQ Last administered on 06/03at 17:16; Start 06/02/18 at 17:00; Stop 06/04/18 at 06:57; Status DC Dextrose 12.5 gm PRN Q15MIN PRN IV SEE COMMENTS Last administered on 06/04/18at 06:56; Start 06/02/18 at 12:30; Stop 06/04/18 at 11:30; Status DC Insulin Glargine (Lantus) 8 units DAILY SQ Last administered on 06/03/18at 08:59 ; Start 06/03/18 at 09:00; Stop 06/04/18 at 06:50; Status DC Vitamin D (Vitamin D3) 1,000 unit DAILY PO Last administered on 06/06/18at 07:35 ; Start 06/03/18 at 09:00; Stop 06/06/18 at 17:19; Status DC Ipratropium [place] (Atrovent) 0.06 mg DAILY IH ; Start 06/03/18 at 09:00; Status UNV Acetaminophen (Tylenol) 500 mg PRN TID PRN PO PAIN; Start 06/02/18 at 15:00; Stop 06/06/18 at 17:19; Status DC Amlodipine Besylate (Norvasc) 10 mg DAILY PO Last administered on 06/05/18at 07: 47; Start 06/03/18 at 09:00; Stop 06/06/18 at 17:19; Status DC Aspirin (Aspirin Enteric Coated) 81 mg DAILY PO Last administered on 06/06/18at 07:34; Start 06/03/18 at 09:00; Stop 06/06/18 at 17:19; Status DC Divalproex Sodium (Depakote) 250 mg TID PO Last administered on 06/04/18at 13:17 ; Start 06/02/18 at 15:00; Stop 06/04/18 at 12:54; Status DC Citalopram Hydrobromide (CeleXA) 20 mg DAILY PO Last administered on 06/06/18at 07:34; Start 06/03/18 at 09:00; Stop 06/06/18 at 17:19; Status DC Insulin Glargine (Lantus) 5 units QHS SQ Last administered on 06/03/18at 20:45; Start 06/02/18 at 21:00; Stop 06/04/18 at 06:50; Status DC Memantine (Namenda) 5 mg BID PO Last administered on 06/06/18at 07:35; Start at 21:00; Stop 06/06/18 at 17:19; Status DC Quetiapine Fumarate (SEROquel) 12.5 mg BID92 PO Last administered on 06/04/18at 13:18; Start 06/03/18 at 09:00; Stop 06/04/18 at 16:52; Status DC Quetiapine Fumarate (SEROquel) 25 mg QHS PO Last administered on 06/05/18at 20: 54; Start 06/02/18 at 21:00; Stop 06/06/18 at 17:19; Status DC Sennosides (Senna) 8.6 mg BID PO Last administered on 06/06/18at 07:34; Start at 21:00; Stop 06/06/18 at 17:19; Status DC Ipratropium [place] (Atrovent Nasal) 2 spray DAILY NS Last administered on 06/06at 07:39; Start 06/03/18 at 09:00; Stop 06/06/18 at 17:19; Status DC Donepezil HCl (Aricept) 10 mg DAILY PO Last administered on 06/06/18at 07:34; Start 06/03/18 at 09:00; Stop 06/06/18 at 17:19; Status DC Glucose (Insta-Glucose) 15 gm STK-MED ONCE .ROUTE Last administered on at 06:05; Start 06/04/18 at 06:05; Stop 06/04/18 at 06:06; Status DC Glucagon (Glucagen Kit) 1 mg 1X ONCE IM ; Start 06/04/18 at 06:30; Stop at 06:32; Status DC Insulin Human Lispro (HumaLOG) 0-5 UNITS TIDWMEALS SQ Last administered on 06/06at 12:00; Start 06/04/18 at 08:00; Stop 06/06/18 at 17:19; Status DC Dextrose 12.5 gm PRN Q15MIN PRN IV SEE COMMENTS; Start 06/04/18 at 07:00; Stop 06/06/18 at 17:19; Status DC Divalproex Sodium (Depakote Sprinkles) 250 mg TID PO ; Start 06/04/18 at 14:00; Stop 06/04/18 at 16:52; Status DC Divalproex Sodium (Depakote Sprinkles) 375 mg TID PO Last administered on at 12:56; Start 06/04/18 at 21:00; Stop 06/06/18 at 17:19; Status DC Quetiapine Fumarate (SEROquel) 12.5 mg TIDWMEALS PO Last administered on at 12:56; Start 06/04/18 at 21:00; Stop 06/06/18 at 17:19; Status DC Active Scripts Active Reported [place] (Menthol) 113 Gm Gel..gram. 1 Manuela TP PRN QID PRN Dextrose 50%-Water Vial (Dextrose 50 % In Water) 50 Ml Vial 50 Ml IV PRN Q15MIN PRN Milk Of Magnesia (Magnesium Hydroxide) 2,400 Mg/10 Ml Oral.susp 2,400 Mg PO PRN QHS PRN Maalox Maximum Strength Susp (Mag Hydrox/Al Hydrox/Simeth) 355 Ml Oral.susp 15 Ml PO PRN AFTMEALHC PRN Humalog Kwikpen (Insulin Lispro) 200 Unit/1 Ml Insuln.pen 1-5 Unit SQ PRN BFRMEAL PRN Celexa (Citalopram Hydrobromide) 20 Mg Tablet 20 Mg PO DAILY Acetaminophen 500 Mg Tablet 500 Mg PO TID PRN PRN Seroquel (Quetiapine Fumarate) 25 Mg Tablet 12.5 Mg PO TIDWMEALS Seroquel (Quetiapine Fumarate) 25 Mg Tablet 25 Mg PO QHS Namenda (Memantine Hcl) 10 Mg Tablet 5 Mg PO BID Senokot (Sennosides) 8.6 Mg Tablet 8.6 Mg PO BID Depakote (Divalproex Sodium) 500 Mg Tablet.dr 375 Mg PO TID Donepezil Hcl 10 Mg Tablet 10 Mg PO DAILY Aspirin Ec (Aspirin) 81 Mg Tablet.dr 81 Mg PO DAILY Vitamin D3 (Cholecalciferol (Vitamin D3)) 1,000 Unit Tablet 1,000 Unit PO DAILY Amlodipine Besylate 10 Mg Tablet 10 Mg PO DAILY Ipratropium [place] 0.2 Mg/1 Ml Solution 0.06 % IH DAILY I have reviewed the current psychotropics carefully including drug interactions. Risk benefit ratio favors no change other than as noted in my dictated progress note. Diagnosis: Problems: (1) Anxiety disorder (2) Dementia, vascular, with delusions (3) Dementia, vascular, with depression (4) Dementia in Alzheimer's disease with delusions (5) Dementia in Alzheimer's disease with depression (6) Impulse control disorder KEZIA OWUSU MD Jun 07, 2018 22:01
[2018-06-08] MEDS ORDERED: IV DEXTROSE 5% 1,000 ML IV SCH (12:00)
[2018-06-08] MEDS ORDERED: IV 1/2 NORMAL SALINE 1,000 ML IV SCH (12:00)
--- NOTE | 2018-06-16 14:55 | EKG ---
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
== END 2018-06-06 17:18 | disposition short-term general hospital (02) | DRG 57 ==
LOC: GEROPSY 10:44
PROVIDERS: ADMIT Psychiatry & Neurology Psychiatry; ATTEND Psychiatry & Neurology Psychiatry
DX: G30.9 Alzheimer's disease, unspecified (principal); F01.51 Vascular dementia, unspecified severity, with behavioral disturbance; F02.81 Dementia in other diseases classified elsewhere, unspecified severity, with behavioral disturbance; M62.82 Rhabdomyolysis; F63.9 Impulse disorder, unspecified; F41.9 Anxiety disorder, unspecified; F32.9 Major depressive disorder, single episode, unspecified; F02.80 Dementia in other diseases classified elsewhere, unspecified severity, without behavioral disturbance, psychotic disturbance, mood disturbance, and anxiety; E11.22 Type 2 diabetes mellitus with diabetic chronic kidney disease; I12.9 Hypertensive chronic kidney disease with stage 1 through stage 4 chronic kidney disease, or unspecified chronic kidney disease; N18.9 Chronic kidney disease, unspecified; H04.129 Dry eye syndrome of unspecified lacrimal gland; K59.00 Constipation, unspecified; R29.6 Repeated falls; Z66 Do not resuscitate; Z79.4 Long term (current) use of insulin; Z79.899 Other long term (current) drug therapy; Z85.46 Personal history of malignant neoplasm of prostate; K59.09 Other constipation; M54.5 Low back pain
CPT/HCPCS: 36415; 80053; 80061; 80164; 81001; 82947; 83036; 83735; 84436; 84443; 84480; 85025; 86592; 93005; J1815

== ENCOUNTER 2018-06-06 17:21 | Inpatient (IN) | payer BC ==
[2018-06-06] VITALS (21 sets, daily range): BP systolic 52–114; BP diastolic 42–59
[~2018-06-06] VITALS: Ht 182.9 cm; Wt 75.3 kg
[~2018-06-06 17:21] MED LIST: ACET500T68 PO; AMLO10TA8 PO; ASPI-612 PO; CHOL10003 PO; CITA20TA9 PO; DEXT50VI2 IV; DIVA500T2 PO; DONE10TA7 PO; ESCITALOPRAM OX10 MG PO; INSU100I27 SQ; INSU200I SQ; IPRA0.2S5 IH; MAG355OR12 PO; MAGN2400 PO; MEMA10TA PO; MENT113G6 TP; QUET25TA5 PO; SENN8.6T99 PO
[2018-06-06 18:06] LABS: BASO % 0 % (0-3); EOS % 0 % (0-3); HEMATOCRIT 36.8 % (39.0-53.0); HEMOGLOBIN 12.3 g/dL (13.0-17.5); LYMPH # 0.6 x10^3/uL (1.0-4.8); LYMPH % 19 % (24-48); MEAN CORPUSCULAR HEMOGLOBIN 29 pg (25-35); MEAN CORPUSCULAR HGB CONC 33 g/dL (31-37); MEAN CORPUSCULAR VOLUME 86 fL (79-100); MONO # 0.1 x10^3/uL (0.0-1.1); MONO % 5 % (0-9); NEUT # 2.3 x10^3uL (1.8-7.7); NEUT % 76 % (31-73); PLATELET COUNT 142 x10^3/uL (140-400); RED BLOOD COUNT 4.31 x10^6/uL (4.30-5.70); RED CELL DISTRIBUTION WIDTH 16.5 % (11.5-14.5); WHITE BLOOD COUNT 3.1 x10^3/uL (4.0-11.0)
[2018-06-06 18:14] LABS: ALBUMIN/GLOBULIN RATIO 0.8 (1.0-1.7); CALCIUM 9.3 mg/dL (8.5-10.1); CREATININE 1.3 mg/dL (0.7-1.3); TOTAL BILIRUBIN 0.3 mg/dL (0.2-1.0)
[2018-06-06 18:19] LABS: POTASSIUM 4.7 mmol/L (3.5-5.1)
[2018-06-06] MEDS ORDERED: IV NORMAL SALINE 1,000ML 1,000 ML IV ONE (20:00)
[2018-06-06] MEDS: IV NORMAL SALINE 1,000ML 1,000 ML IV SCH (20:35)
[2018-06-07] VITALS (39 sets, daily range): BP systolic 94–129; BP diastolic 41–60
[2018-06-07] MEDS: IV NORMAL SALINE 1,000ML 1,000 ML IV SCH (04:57)
[2018-06-07] MEDS ORDERED: IV NORMAL SALINE 1,000ML 1,000 ML IV SCH (05:00)
[2018-06-07 06:45] LABS: BASO % 0 % (0-3); EOS % 0 % (0-3); HEMATOCRIT 35.7 % (39.0-53.0); HEMOGLOBIN 11.9 g/dL (13.0-17.5); LYMPH # 0.5 x10^3/uL (1.0-4.8); LYMPH % 7 % (24-48); MEAN CORPUSCULAR HEMOGLOBIN 28 pg (25-35); MEAN CORPUSCULAR HGB CONC 33 g/dL (31-37); MEAN CORPUSCULAR VOLUME 85 fL (79-100); MONO # 1.2 x10^3/uL (0.0-1.1); MONO % 17 % (0-9); NEUT # 5.1 x10^3uL (1.8-7.7); NEUT % 75 % (31-73); PLATELET COUNT 171 x10^3/uL (140-400); RED BLOOD COUNT 4.19 x10^6/uL (4.30-5.70); RED CELL DISTRIBUTION WIDTH 16.1 % (11.5-14.5); WHITE BLOOD COUNT 6.8 x10^3/uL (4.0-11.0)
[2018-06-07 06:59] LABS: ALBUMIN 2.7 g/dL (3.4-5.0); ALBUMIN/GLOBULIN RATIO 0.7 (1.0-1.7); CALCIUM 8.7 mg/dL (8.5-10.1); CREATININE 1.6 mg/dL (0.7-1.3); GFR 42.5; POTASSIUM 4.3 mmol/L (3.5-5.1); TOTAL BILIRUBIN 0.4 mg/dL (0.2-1.0); TOTAL PROTEIN 6.5 g/dL (6.4-8.2)
[2018-06-07 07:39] LABS: % BASOS 1 % (0-3); % LYMPHS 6 % (24-48); % MONOS 16 % (0-10); % SEGS 77 % (35-66)
[2018-06-07 07:40] LABS: PLT ESTIMATE ADEQUATE (ADEQUATE); TOXIC GRANULATION PRESENT
[2018-06-07] MEDS: IV DEXTROSE 5% 1,000 ML IV SCH ×2 (09:28→22:34)
--- NOTE | 2018-06-07 10:03 | PN ---
DATE: 06/07/2018 SUBJECTIVE: The patient is resting, slightly propped up in bed, in no apparent distress. He continued to be encephalopathic, nonverbal. He did open his eyes according to nursing staff when changes position. PHYSICAL EXAMINATION: GENERAL: When I examined him, he looked pale, but no jaundice, cyanosis, or thyromegaly. No jugular venous distention. No limb edema. VITAL SIGNS: His heart rate was 78, blood pressure was 94/47, temperature was 99.7, respiratory rate was 15 and oxygen saturation was 99% on room air. HEAD, EYES, EARS, NOSE AND THROAT: Showed normocephalic, atraumatic. NECK: Supple. HEART: Showed normal first and second sounds. No gallop, rub or murmur. CHEST: Clear to auscultation. No crepitation or rhonchi. ABDOMEN: Scaphoid, soft, nontender. NEUROLOGIC: He continued to be encephalopathic, nonverbal, mostly bed bound. His intake was 3250, output was 645. LABORATORY DATA: His white cell count was 6800, hemoglobin 11.9, hematocrit 36, MCV 85 and platelet count of 171,000. Serum sodium has risen further to 150, potassium 4.3, chloride 115, bicarbonate 27, anion gap of 8, BUN 32, creatinine 1.6, estimated GFR was 42 mL per minute, his glucose was 142, lactic acid is only 1. Calcium was 8.7. Total bilirubin is normal. AST, ALT, alkaline phosphatase are elevated, but trending down. Total protein was 6.5, albumin was 2.7. ASSESSMENT: This is a 73-year-old -[place] male patient who was transferred from [facility] with: 1. Drug-induced hypothermia. He was admitted to the ICU and started on Robin Hugger fluid rewarming and his temperature now 99.7. He was bradycardic, hypotensive. His heart rate was only 39. His heart rate is now up to 78. 2. Type 2 diabetes mellitus, it is very brittle, had multiple episodes of hypoglycemia. 3. Hyponatremia with a serum sodium up to 150. 4. Acute on chronic kidney injury, his creatinine has risen from 1.3-1.6. 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 5. Protein-calorie malnutrition, his serum albumin is only 2.7 g/dL. PLAN: To change IV fluid to D5W. Continue to monitor his lab work. His TSH was done 2 days ago, it was 5.6; however, his total T4 and total T3 were normal. LEIF RAMACHANDRAN MD DR: MONICA/re JOB#: [id number] / [id number]
--- NOTE | 2018-06-07 10:05 | HP ---
ADMIT DATE: 06/06/2018 HISTORY OF PRESENT ILLNESS: The patient is a 73-year-old -Mongolian male patient, whom I have seen [facility] at the request of the nursing staff as the patient was hypothermic. In fact, his temperature was only 86, so they probably not the right temperature as we did not have the rectal thermometer, but he was hypothermic, hypotensive and therefore the patient was transferred to ICU for a rewarming. He was started on IV fluid and Robin Hugger. He has had an indwelling Fajardo catheter. The patient was awake, alert, but was nonverbal. His temperature when he arrived to the ICU was only 86.6, which is probably not accurate. He was bradycardic and hypotensive. It transpired that he has received 3 doses of Zyprexa. He is also on Seroquel and most likely his hypothermia was induced by the psychotropic medication. PAST MEDICAL HISTORY: Significant for chronic kidney disease, prostate cancer, erectile dysfunction, low back pain, abnormalities of gait and mobility, dry eye syndrome, chronic constipation, restlessness, agitation and generalized weakness. He has also had type 2 diabetes mellitus. PAST SURGICAL HISTORY: Unremarkable. FAMILY HISTORY: Noncontributory. SOCIAL HISTORY: He is a resident at [facility]. ALLERGIES: HE IS ALLERGIC TO ATORVASTATIN AND LISINOPRIL. MEDICATIONS: He was transferred to ICU on following medications: He is on Aricept 10 mg daily, ipratropium bromide by nebulizer once a day, amlodipine besylate 10 mg once a day, aspirin 81 mg once a day, acetaminophen 500 mg 3 times a day, divalproex sodium 375 mg 3 times a day, citalopram hydrobromide for Celexa 20 mg once a day, quetiapine fumarate 25 mg at bedtime, quetiapine fumarate 12.5 mg 3 times a day, Namenda 5 mg twice a day. He is also on Mylanta 15 mL every after meal, milk of magnesia 30 mL p.o. daily p.r.n. for constipation, Senna 1 tablet twice a day. He is on Humalog insulin as insulin sliding scale before meals. He is on BenGay 1 application 4 times a day, cholecalciferol for vitamin D3 1000 international unit once a day. PHYSICAL EXAMINATION: GENERAL: On arrival to the ICU, the patient was unresponsive, hypothermic and bradycardic. VITAL SIGNS: His heart rate was 39, blood pressure was 98/57, temperature was 86.6, respiratory rate was 12 and oxygen saturation was 100% on room air. HEAD, EYES, EARS, NOSE, AND THROAT: Showed normocephalic, atraumatic. NECK: Supple. HEART: Showed normal first and second sounds. No gallop, rub or murmur. CHEST: Clear to auscultation. No crepitation or rhonchi. ABDOMEN: Distended, soft, nontender. NEUROLOGIC: He was lethargic, but arousable. He does open his eye. Otherwise, all his cranial nerves are intact. EXTREMITIES: He moves extremities without difficulty, although he is mostly bedbound, chair bound. LABORATORY DATA: Showed a white cell count of 3100, hemoglobin 12.3, hematocrit 36.8, MCV 86 and platelet count of 142,000. His serum sodium was high at 147, potassium 4.7, chloride 111, bicarbonate 31, anion gap of 5, BUN 31, creatinine 1.3, estimated GFR was 54 mL per minute. His glucose was 283, calcium was 9.3. Total bilirubin is normal. AST, ALT, alkaline phosphatase are elevated. His lactate dehydrogenase was normal at 205. Total protein was 7, albumin was 3. His D-dimer was less than 0.19. ASSESSMENT AND PLAN: In summary, this is a 73-year-old -Mongolian male patient who was transferred from [facility] with hypothermia, most likely drug induced as he was started on Zyprexa, which disturbs the temperature regulation. We will arrange for him to have his TSH and CK. We will use the Robin Hugger, fluid rewarmer, adjust his room temperature and follow his labs closely and I obviously will hold all his medication as his altered mental status. Once his level of consciousness improved, we will get speech therapy and start feeding him. LEIF RAMACHANDRAN MD DR: MONICA/re JOB#: [id number] / [id number]
--- NOTE | 2018-06-07 10:09 | RAD ---
EXAM: Chest, single view. HISTORY: Shortness of breath. COMPARISON: None. FINDINGS: A frontal view of the chest is obtained. There is slight increased bilateral perihilar opacity likely due to atelectasis. There is no consolidation, pleural effusion or pneumothorax. The heart is prominent in size, a component of which is due to supine imaging technique. IMPRESSION: Suspected slight perihilar atelectasis. Electronically signed by: Fabiana Montero MD (06/07/2018 10:06 AM) [place] [id number]
--- NOTE | 2018-06-07 10:10 | RAD ---
EXAM: Head CT without contrast. HISTORY: Altered mental status. TECHNIQUE: Computed tomographic images of the head were obtained without contrast. *One or more of the following individualized dose reduction techniques were utilized for this examination: 1. Automated exposure control. 2. Adjustment of the mA and/or kV according to patient size. 3. Use of iterative reconstruction technique. COMPARISON: None. FINDINGS: There is no acute or subacute extra-axial or intraparenchymal hemorrhage. There is no mass effect or midline shift. There is no hydrocephalus. There are areas of decreased attenuation within the cerebral white matter, nonspecific and likely related to chronic small vessel disease. There is mild ethmoid sinus mucosal thickening. There is evidence of lens surgery. The mastoid air cells are clear. IMPRESSION: 1. No acute intracranial finding. Note is made that MRI is more sensitive for acute infarction. 2. Subtle areas of hypodensity within the cerebral white matter, likely due to chronic small vessel disease. Electronically signed by: Fabiana Montero MD (06/07/2018 10:07 AM) [id number]
[2018-06-07] MEDS ORDERED: DEXTROSE 50% 25 GM / 50ML DISP.SYRIN. IV PRN (12:30)
[2018-06-07] MEDS ORDERED: INSULIN LISPRO 300 UNITS/3 ML INSULN.PEN. SQ SCH (17:00)
--- NOTE | 2018-06-07 19:10 | PDOC ---
Exam Note: Miguel Note: Please also refer to the separate dictated note~for this date of service dictated separately.~Patient seen individually. Discussed the patient with Nursing staff reviewed the chart.~Reviewed interim history and current functioning. Reviewed vital signs,~Labs/ Radiology~and current medications noted below. Continue current treatment with the changes noted in the dictated addendum note Assessment: Vital Signs: Vital Signs Date Time Temp Pulse Resp B/P (MAP) Pulse Ox O2 Delivery O2 Flow Rate FiO2 06/07/18 18:12 98.9 73 117/47 (70) 100 Room Air 06/07/18 17:06 15 06/07/18 01:40 1.0 I&O Intake and Output 06/07/18 07:00 Intake Total 3250 ml Output Total 645 ml Balance 2605 ml Intake Oral 0 ml IV Total 2250 ml Blood Product IV Normal Saline Flush 1000 ml Output Urine Total 645 ml Labs: Laboratory Tests Test 06/06/18 20:58 06/07/18 00:12 06/07/18 05:45 06/07/18 09:36 Glucose (Fingerstick) 153 mg/dL (70-99) H 130 mg/dL (70-99) H 181 mg/dL (70-99) H White Blood Count 6.8 x10^3/uL (4.0-11.0) # Red Blood Count 4.19 x10^6/uL (4.30-5.70) L Hemoglobin 11.9 g/dL (13.0-17.5) L Hematocrit 35.7 % (39.0-53.0) L Mean Corpuscular Volume 85 fL (79-100) Mean Corpuscular Hemoglobin 28 pg (25-35) Mean Corpuscular Hemoglobin Concent 33 g/dL (31-37) Red Cell Distribution Width 16.1 % (11.5-14.5) H Platelet Count 171 x10^3/uL (140-400) Neutrophils (%) (Auto) 75 % (31-73) H Lymphocytes (%) (Auto) 7 % (24-48) L Monocytes (%) (Auto) 17 % (0-9) H Eosinophils (%) (Auto) 0 % (0-3) Basophils (%) (Auto) 0 % (0-3) Neutrophils # (Auto) 5.1 x10^3uL (1.8-7.7) Lymphocytes # (Auto) 0.5 x10^3/uL (1.0-4.8) L Monocytes # (Auto) 1.2 x10^3/uL (0.0-1.1) H Eosinophils # (Auto) 0.0 x10^3/uL (0.0-0.7) Basophils # (Auto) 0.0 x10^3/uL (0.0-0.2) Segmented Neutrophils % 77 % (35-66) H Lymphocytes % 6 % (24-48) L Monocytes % 16 % (0-10) H Basophils % 1 % (0-3) Toxic Granulation Present Platelet Estimate Adequate (ADEQUATE) Sodium Level 150 mmol/L (136-145) H Potassium Level 4.3 mmol/L (3.5-5.1) Chloride Level 115 mmol/L (98-107) H Carbon Dioxide Level 27 mmol/L (21-32) Anion Gap 8 (6-14) Blood Urea Nitrogen 32 mg/dL (8-26) H Creatinine 1.6 mg/dL (0.7-1.3) H Estimated GFR (Cockcroft-Gault) 42.5 BUN/Creatinine Ratio 20 (6-20) Glucose Level 142 mg/dL (70-99) H Lactic Acid Level 1.0 mmol/L (0.4-2.0) Calcium Level 8.7 mg/dL (8.5-10.1) Total Bilirubin 0.4 mg/dL (0.2-1.0) Aspartate Amino Transferase (AST) 55 U/L (15-37) H Alanine Aminotransferase (ALT) 125 U/L (16-63) H Alkaline Phosphatase 130 U/L (46-116) H Total Protein 6.5 g/dL (6.4-8.2) Albumin 2.7 g/dL (3.4-5.0) L Albumin/Globulin Ratio 0.7 (1.0-1.7) L Test 06/07/18 12:10 06/07/18 14:56 06/07/18 16:35 06/07/18 18:41 Glucose (Fingerstick) 239 mg/dL (70-99) H 244 mg/dL (70-99) H 229 mg/dL (70-99) H 274 mg/dL (70-99) H Current Medications: Meds: Current Medications Dopamine HCl/ Dextrose 250 ml @ 5.592 mls/ hr CONT PRN IV SEE I/O RECORD Last administered on 06/07/18at 15:31; Start 06/06/18 at 20:00 Sodium Chloride 1,000 ml @ 1,000 mls/hr 1X ONCE IV Last administered on at 19:57; Start 06/06/18 at 20:00; Stop 06/06/18 at 20:59; Status DC Sodium Chloride 1,000 ml @ 100 mls/hr Q10H IV Last administered on 06/07/18at 04:57; Start 06/06/18 at 20:30; Stop 06/07/18 at 08:49; Status DC Sodium Chloride 1,000 ml @ 100 mls/hr Q10H IV ; Start 06/07/18 at 05:00; Stop 06/07/18 at 05:00; Status DC Dextrose 1,000 ml @ 75 mls/hr [id number] IV Last administered on 06/07/18at 09:28 ; Start 06/07/18 at 09:00 Insulin Human Lispro (HumaLOG) 0-5 UNITS TIDWMEALS SQ Last administered on 06/07at 13:53; Start 06/07/18 at 17:00; Stop 06/07/18 at 19:02; Status DC Dextrose 12.5 gm PRN Q15MIN PRN IV SEE COMMENTS; Start 06/07/18 at 12:30 Insulin Human Lispro (HumaLOG) 0-5 UNITS Q6HRS SQ ; Start 06/08/18 at 00:00; Status UNV Active Scripts Active Reported [place] (Menthol) 113 Gm Gel..gram. 1 Manuela TP PRN QID PRN Dextrose 50%-Water Vial (Dextrose 50 % In Water) 50 Ml Vial 50 Ml IV PRN Q15MIN PRN Milk Of Magnesia (Magnesium Hydroxide) 2,400 Mg/10 Ml Oral.susp 2,400 Mg PO PRN QHS PRN Maalox Maximum Strength Susp (Mag Hydrox/Al Hydrox/Simeth) 355 Ml Oral.susp 15 Ml PO PRN AFTMEALHC PRN Humalog Kwikpen (Insulin Lispro) 200 Unit/1 Ml Insuln.pen 1-5 Unit SQ PRN BFRMEAL PRN Celexa (Citalopram Hydrobromide) 20 Mg Tablet 20 Mg PO DAILY Acetaminophen 500 Mg Tablet 500 Mg PO TID PRN PRN Seroquel (Quetiapine Fumarate) 25 Mg Tablet 12.5 Mg PO TIDWMEALS Seroquel (Quetiapine Fumarate) 25 Mg Tablet 25 Mg PO QHS Namenda (Memantine Hcl) 10 Mg Tablet 5 Mg PO BID Senokot (Sennosides) 8.6 Mg Tablet 8.6 Mg PO BID Depakote (Divalproex Sodium) 500 Mg Tablet.dr 375 Mg PO TID Donepezil Hcl 10 Mg Tablet 10 Mg PO DAILY Aspirin Ec (Aspirin) 81 Mg Tablet.dr 81 Mg PO DAILY Vitamin D3 (Cholecalciferol (Vitamin D3)) 1,000 Unit Tablet 1,000 Unit PO DAILY Amlodipine Besylate 10 Mg Tablet 10 Mg PO DAILY Ipratropium [place] 0.2 Mg/1 Ml Solution 0.06 % IH DAILY I have reviewed the current psychotropics carefully including drug interactions. Risk benefit ratio favors no change other than as noted in my dictated progress note. 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
[2018-06-08] VITALS (21 sets, daily range): BP systolic 91–145; BP diastolic 41–77
[2018-06-08] MEDS: INSULIN LISPRO 300 UNITS/3 ML INSULN.PEN. SQ SCH ×4 (00:08→16:32)
[2018-06-08 06:19] LABS: CALCIUM 8.6 mg/dL (8.5-10.1); CREATININE 1.8 mg/dL (0.7-1.3); GFR 37.1; POTASSIUM 4.2 mmol/L (3.5-5.1)
[2018-06-08] MEDS: IV DEXTROSE 5% 1,000 ML IV SCH ×2 (11:15→19:26)
[2018-06-08] MEDS ORDERED: IV 1/2 NORMAL SALINE 1,000 ML IV SCH (12:00)
--- NOTE | 2018-06-08 20:52 | PN ---
DATE: 06/07/2018 PSYCHIATRIC PROGRESS NOTE This late entry 06/07/2018 covers elements not covered in my initial note. SUBJECTIVE: I met with the patient in the evening of 06/07/2018 in ICU bed 3. The patient is a 73-year-old -[place] male who [facility] being stabilized for his dementia with delusion, behavioral disturbance. He developed hypothermia, was transferred to the ICU. The hypothermia seems to be better and atypical; antipsychotics have been discontinued. He remains confused, but not aggressive. REVIEW OF SYSTEMS: He is lying in bed, not interactive or responsive. No CV, , pulmonary, eye system symptoms on review. MENTAL STATUS EXAM: Oriented to himself. Insight, judgment, recent and remote memory, attention, concentration, fund of knowledge poor, consistent with his diagnosis. IMPRESSION: Major neurocognitive disorder, Alzheimer, vascular with delusion, depression, behavioral disturbance, hypothermia, partially resolved. Rest unchanged. RECOMMENDATIONS: From a psychiatric standpoint, I would not recommend anything differently for now. Once he is medically stable, we will reassess whether he needs to be back on the [facility] or return to a nursing facility or home. He was at home previously, but it is unclear where he could be managed there by his at this stage of his confusion. KEZIA OWUSU MD DR: JM/re JOB#: [id number] / [id number]
--- NOTE | 2018-06-08 22:18 | PDOC ---
Exam Note: Miguel Note: Please also refer to the separate dictated note~for this date of service dictated separately.~Patient seen individually. Discussed the patient with Nursing staff reviewed the chart.~Reviewed interim history and current functioning. Reviewed vital signs,~Labs/ Radiology~and current medications noted below. Continue current treatment with the changes noted in the dictated addendum note Assessment: Vital Signs: Vital Signs Date Time Temp Pulse Resp B/P (MAP) Pulse Ox O2 Delivery O2 Flow Rate FiO2 06/08/18 20:00 64 18 113/67 (82) 99 Room Air 06/08/18 19:01 98.0 06/07/18 01:40 1.0 I&O Intake and Output 06/08/18 06:59 Intake Total 1977 ml Output Total 1075 ml Balance 902 ml Intake Oral 0 ml IV Total 1977 ml Output Urine Total 1075 ml Labs: Laboratory Tests Test 06/08/18 00:03 06/08/18 05:40 06/08/18 05:41 06/08/18 09:04 Glucose (Fingerstick) 305 mg/dL (70-99) H 289 mg/dL (70-99) H 270 mg/dL (70-99) H Sodium Level 145 mmol/L (136-145) Potassium Level 4.2 mmol/L (3.5-5.1) Chloride Level 110 mmol/L (98-107) H Carbon Dioxide Level 29 mmol/L (21-32) Anion Gap 6 (6-14) Blood Urea Nitrogen 32 mg/dL (8-26) H Creatinine 1.8 mg/dL (0.7-1.3) H Estimated GFR (Cockcroft-Gault) 37.1 Glucose Level 284 mg/dL (70-99) H Calcium Level 8.6 mg/dL (8.5-10.1) Test 06/08/18 11:03 06/08/18 14:33 06/08/18 16:29 Glucose (Fingerstick) 285 mg/dL (70-99) H 259 mg/dL (70-99) H 267 mg/dL (70-99) H Current Medications: Meds: Current Medications Dopamine HCl/ Dextrose 250 ml @ 5.592 mls/ hr CONT PRN IV SEE I/O RECORD Last administered on 06/07/18at 15:31; Start 06/06/18 at 20:00 Sodium Chloride 1,000 ml @ 1,000 mls/hr 1X ONCE IV Last administered on at 19:57; Start 06/06/18 at 20:00; Stop 06/06/18 at 20:59; Status DC Sodium Chloride 1,000 ml @ 100 mls/hr Q10H IV Last administered on 06/07/18at 04:57; Start 06/06/18 at 20:30; Stop 06/07/18 at 08:49; Status DC Sodium Chloride 1,000 ml @ 100 mls/hr Q10H IV ; Start 06/07/18 at 05:00; Stop 06/07/18 at 05:00; Status DC Dextrose 1,000 ml @ 125 mls/hr Q8H IV Last administered on 06/08/18at 19:26; Start 06/07/18 at 09:00 Insulin Human Lispro (HumaLOG) 0-5 UNITS TIDWMEALS SQ Last administered on 06/07at 13:53; Start 06/07/18 at 17:00; Stop 06/07/18 at 19:02; Status DC Dextrose 12.5 gm PRN Q15MIN PRN IV SEE COMMENTS; Start 06/07/18 at 12:30 Insulin Human Lispro (HumaLOG) 0-5 UNITS Q6HRS SQ Last administered on at 16:32; Start 06/08/18 at 00:00 Sodium Chloride 1,000 ml @ 500 mls/hr Q2H IV Last administered on 06/08/18at 12 :06; Start 06/08/18 at 12:00; Stop 06/08/18 at 12:08; Status DC Active Scripts Active Reported [place] (Menthol) 113 Gm Gel..gram. 1 Manuela TP PRN QID PRN Dextrose 50%-Water Vial (Dextrose 50 % In Water) 50 Ml Vial 50 Ml IV PRN Q15MIN PRN Milk Of Magnesia (Magnesium Hydroxide) 2,400 Mg/10 Ml Oral.susp 2,400 Mg PO PRN QHS PRN Maalox Maximum Strength Susp (Mag Hydrox/Al Hydrox/Simeth) 355 Ml Oral.susp 15 Ml PO PRN AFTMEALHC PRN Humalog Kwikpen (Insulin Lispro) 200 Unit/1 Ml Insuln.pen 1-5 Unit SQ PRN BFRMEAL PRN Celexa (Citalopram Hydrobromide) 20 Mg Tablet 20 Mg PO DAILY Acetaminophen 500 Mg Tablet 500 Mg PO TID PRN PRN Seroquel (Quetiapine Fumarate) 25 Mg Tablet 12.5 Mg PO TIDWMEALS Seroquel (Quetiapine Fumarate) 25 Mg Tablet 25 Mg PO QHS Namenda (Memantine Hcl) 10 Mg Tablet 5 Mg PO BID Senokot (Sennosides) 8.6 Mg Tablet 8.6 Mg PO BID Depakote (Divalproex Sodium) 500 Mg Tablet.dr 375 Mg PO TID Donepezil Hcl 10 Mg Tablet 10 Mg PO DAILY Aspirin Ec (Aspirin) 81 Mg Tablet.dr 81 Mg PO DAILY Vitamin D3 (Cholecalciferol (Vitamin D3)) 1,000 Unit Tablet 1,000 Unit PO DAILY Amlodipine Besylate 10 Mg Tablet 10 Mg PO DAILY Ipratropium [place] 0.2 Mg/1 Ml Solution 0.06 % IH DAILY I have reviewed the current psychotropics carefully including drug interactions. Risk benefit ratio favors no change other than as noted in my dictated progress note. Diagnosis: Problems: (1) Anxiety disorder (2) Dementia, vascular, with delusions (3) Dementia, vascular, with depression (4) Dementia in Alzheimer's disease with delusions (5) Dementia in Alzheimer's disease with depression (6) Impulse control disorder KEZIA OWUSU MD Jun 08, 2018 22:18
[2018-06-09] VITALS (12 sets, daily range): BP systolic 113–154; BP diastolic 51–79
--- NOTE | 2018-06-09 00:17 | PN ---
DATE: 06/08/2018 SUBJECTIVE: The patient is resting, slightly propped up in bed, in no apparent respiratory distress. He does open his eyes occasionally, continued to be encephalopathic despite the fact that his sodium is actually much improved today. PHYSICAL EXAMINATION: GENERAL: When I examined him, he looked pale, no jaundice, cyanosis, or thyromegaly. No jugular venous distension. No lower limb edema. VITAL SIGNS: His heart rate was 73, blood pressure was 128/55, temperature was 98.9, respiratory rate was 18 and oxygen saturation was 97% on room air. HEAD, EYES, EARS, NOSE AND THROAT: Showed normocephalic, atraumatic. NECK: Supple. HEART: Showed normal first and second heart sounds with no gallop, rub or murmur. CHEST: Clear to auscultation. No crepitation or rhonchi. ABDOMEN: Distended, soft, nontender. NEUROLOGIC: He continued to be encephalopathic, does open his eyes occasionally, continued to be nonverbal, and does not really follow command. His cranial nerves seem to be grossly intact. He moves his upper extremities to much good extent. Lower extremities, mostly bed bound. His intake was 3250, output was 645. LABORATORY DATA: Showed a white cell count 6800, hemoglobin 11.9, hematocrit 36, MCV 85 and platelet count of 171,000. His chemistry this morning showed a serum sodium 142, potassium of 4.2, chloride 110, bicarbonate 29, anion gap of 6, BUN 32, creatinine 1.8, estimated GFR was 37, glucose was 284. Prothrombin time was less than 0.19. IMAGING: His chest x-ray we did yesterday showed that the patient has slight increased bilateral perihilar opacity, likely to atelectasis. There is no consolidation, pleural effusion, pneumothorax. The heart is prominent in size, a component of which is due to supine imaging technique. The CT scan of the head showed that there is no acute intracranial finding. Subtle areas of hypodensity within the cerebral white matter, likely due to chronic small vessel disease. PLAN: In summary, this is a 73-year-old male patient who was admitted with hypothermia, likely to be drug induced as he was started on Zyprexa. His temperature has normalized. His TSH is slightly elevated; however, total T4 and total T3 were normal. I will ask the lab to add creatinine kinase to rule out the possibility of rhabdomyolysis. We will give him a bolus of half normal saline and increase his IV fluid to 125 mL of D5W. LEIF RAMACHANDRAN MD DR: MONICA/re JOB#: [id number] / [id number]
[2018-06-09] MEDS: INSULIN LISPRO 300 UNITS/3 ML INSULN.PEN. SQ SCH ×2 (00:28→06:18)
[2018-06-09] MEDS: IV DEXTROSE 5% 1,000 ML IV SCH ×2 (03:56→11:50)
[2018-06-09 06:31] LABS: ALBUMIN/GLOBULIN RATIO 0.5 (1.0-1.7); CALCIUM 8.5 mg/dL (8.5-10.1); CREATININE 1.7 mg/dL (0.7-1.3); GFR 39.6; POTASSIUM 3.6 mmol/L (3.5-5.1); TOTAL BILIRUBIN 0.9 mg/dL (0.2-1.0); TOTAL PROTEIN 5.9 g/dL (6.4-8.2)
--- NOTE | 2018-06-09 19:17 | DS ---
DATE OF DISCHARGE: 06/09/2018 DISCHARGE, TRANSFER SUMMARY HOSPITAL COURSE: The patient is a 73-year-old male patient who was transferred from [facility] on account of hypothermia. He was also noted to have hypernatremia and acute kidney injury. He was transferred to the ICU, was started on Robin Hugger and fluid warmer, however despite being normothermic, the patient's level of consciousness and agitation improved, he continued to be encephalopathic, does not open his eyes or tracks, and given the lack of improvement, a discussion was held with the family, and basically, the patient could be discharged back to [facility] to continue to go for hospice and end of life care. PHYSICAL EXAMINATION: GENERAL: When I saw him today, he was resting, slightly propped up in bed, clearly tachypneic, pale. No jaundice, cyanosis, or thyromegaly. No jugular venous distension. No lower limb edema. VITAL SIGNS: His heart rate was 59, blood pressure was 134/60, temperature was 98, respiratory rate was 32, and oxygen saturation was 96% on room air. HEAD, EYES, EARS, NOSE, AND THROAT: Normocephalic, atraumatic. NECK: Supple. HEART: Showed normal first and second sounds. No gallop, rub, or murmur. CHEST: Clear to auscultation. No crepitation or rhonchi. ABDOMEN: Distended, soft, nontender. NEUROLOGICAL: He continued to be encephalopathic. He does not open his eyes nor does he respond to verbal or painful stimuli. His intake and output are incompletely recorded and I do not have any access to his labs today as the computers are down. However, the patient will be discharged to [facility], to continue on Roxanol 20 mg/mL to take 0.25-1 mL, that is 5-20 mg p.o. sublingually every 2 hours for pain and shortness of air and Ativan Intensol 2 mg/mL to take 0.25-1 mL that is 0.5-2 mg p.o. sublingually every 4 hours for anxiety. FINAL DISCHARGE DIAGNOSES: 1. Severe metabolic encephalopathy. 2. Hypothermia, that has resolved. 3. [id number] kidney injury. 4. Type 2 diabetes mellitus. LEIF RAMACHANDRAN MD DR: [place] JOB#: [id number] / [id number]
--- NOTE | 2018-06-09 22:09 | PN ---
DATE: 06/08/2018 PSYCHIATRIC PROGRESS NOTE This late entry 06/08/2018 covers elements not covered in my initial note. SUBJECTIVE: I met with the patient in the evening. Per nursing report, the patient has been withdrawn, but not aggressive, disruptive, certainly very confused. Unable to ambulate. REVIEW OF SYSTEMS: No CV, , pulmonary, eye, ENT system symptoms on review. Reliability poor. MENTAL STATUS EXAM: Oriented to himself. Insight, judgment, recent and remote memory, attention, concentration, fund of knowledge poor, consistent with his diagnosis mentioned in my initial note. PLAN: No change from initial note. MAN Marily OWUSU MD DR: JM/re JOB#: [id number] / [id number]
== END 2018-06-09 14:00 | disposition home or self-care (01) | DRG 70 ==
LOC: ICU 17:21
PROVIDERS: ADMIT Internal Medicine; ATTEND Internal Medicine
DX: G93.41 Metabolic encephalopathy (principal); E43 Unspecified severe protein-calorie malnutrition; N17.9 Acute kidney failure, unspecified; F02.81 Dementia in other diseases classified elsewhere, unspecified severity, with behavioral disturbance; F01.51 Vascular dementia, unspecified severity, with behavioral disturbance; E46 Unspecified protein-calorie malnutrition; E87.1 Hypo-osmolality and hyponatremia; E87.0 Hyperosmolality and hypernatremia; G30.9 Alzheimer's disease, unspecified; F63.9 Impulse disorder, unspecified; T68.XXXA Hypothermia, initial encounter; N18.9 Chronic kidney disease, unspecified; E11.22 Type 2 diabetes mellitus with diabetic chronic kidney disease; F32.9 Major depressive disorder, single episode, unspecified; F41.9 Anxiety disorder, unspecified; K75.81 Nonalcoholic steatohepatitis (NASH); Z85.46 Personal history of malignant neoplasm of prostate; Z68.22 Body mass index [BMI] 22.0-22.9, adult; Z88.8 Allergy status to other drugs, medicaments and biological substances
CPT/HCPCS: 36415; 70450; 71045; 80048; 80053; 82550; 82947; 83605; 83615; 84443; 85007; 85025; 85379; 87040; 87641; J1265; J1815; J7030